=== PATIENT | female | born 1985 | race Caucasian/White ===

== ENCOUNTER 2016-06-08 09:48 | Outpatient (CLI) | payer OTHER ==
[~2016-06-08] VITALS: Ht 149.9 cm; Wt 85.5 kg
[2016-06-08 10:01] VITALS: BP 119/80; PULSE 83; RESP 18; Ht 149.9 cm; Wt 85.5 kg
[2016-06-08] MEDS ORDERED: PRENAT PO (10:05)
--- NOTE | 2016-06-08 11:21 | RADRPT ---
PROCEDURE: OB ultrasound for biophysical profile CLINICAL INDICATION: Post dates TECHNIQUE: Multiple sonographic images of the pelvis were obtained. Transabdominal view of the gr avid uterus are available for review. The images were reviewed on a PACS workstation. COMPARISON: OB ultrasound 01/20/2016 FINDINGS: breathing movement = 2/2 tone = 2/2 motion = 2/2 KELSEY = 2/2 KELSEY = 16.7 cm Single live intrauterine with cardiac activity. heart rate equals 131 beats p er minute. Presentation is cephalic. The placenta is posterior. IMPRESSION: 1. Single viable intrauterine gestation. 2. Biophysical profile = 8/8. 3. KELSEY = 16.7 cm. RPTAT: KK .James Curry MD, MD Date Time Electronically viewed and signed by .James Curry MD, MD on 06/08/2016 11:21 .B/
--- NOTE | 2016-06-08 11:24 | RADRPT ---
PROCEDURE: US OB CLINICAL INDICATION: post dates TECHNIQUE: Multiple sonographic images of the pelvis were obtained. The images were reviewed on a PACS workstation. COMPARISON: None FINDINGS: The cervix is not well visualized. There is a single viable intrauterine gestation. Cardiac activity is present with 137 beats per minute. There is a vertex presentation. The placenta is posterior. There is no evidence for an abruption or placenta previa. There is a subjectively normal amount of amniotic fluid. Measurements were made in order to determine age. The results are as follows (cm): BPD =9.48 HC =34.61 AC =34.80 FL =7.56 Estimated gestational age by ultrasound of approximately 39 weeks, 1 day. The estimated date of delivery by ultrasound is 06/14/2016. Reported gestational age by LMP of approximately 40 weeks, 1 day. The reported date of delivery by LMP was 06/07/2016. EFW = 3624 grams (48th percentile) IMPRESSION: Single viable intrauterine gestation of approximately 39 weeks, 1 day . The estimated date of delivery is 06/14/2016 . Dating by ultrasound is within 1 week of dating by LMP. Cephalic presentation. RPTAT: EE Physician Kitty Date Time Electronically viewed and signed by Physician Kitty on 06/08/2016 11:23 /
--- NOTE | 2016-06-08 12:12 | TRIAGE ---
OB Triage Datetime Report Generated by CPN: 06/08/2016 12:12 Datetime: 06/08/2016 11:00 Labor Evaluation Frequency: 2-6 Monitor Mode: External Duration (sec)2399: 60-150 Quality: Mild Pattern: Normal: <= 5 Contractions in 10 Minutes Resting Tone [place]: Relaxed Heart Rate FHR Baseline Rate: 135 Monitor Mode: External US FHR Baseline Changes: No Baseline Change Variability: Moderate 6-25 bpm Accelerations: 15X15 Decelerations: None Category: Category I Datetime: 06/08/2016 09:58 Stage of : OB Triage Assessment Type: Triage EGA: 40.2 Maternal Assessment Level of Consciousness: Fully Conscious DTR's/Clonus: DTRs 2+; No Clonus Headache: Denies Blurred Vision: No Respiratory Effort: Unlabored; Regular Rhythm; Equal Expansion Breath Sounds, Left: Clear and Equal Breath Sounds, Right: Clear and Equal Nausea/Vomiting: Denies RUQ Epigastric Pain: Denies Facial Edema: None Temperature Route: Axillary Fall Risk Assessment History of Falling: (0) No Secondary Diagnosis: (0) No Ambulatory Aid: (0) Bedrest/Nurse Assist IV Therapy: (0) No Gait: (0) Normal/Bedrest/Immobile Mental Status: (0) Oriented to Own Ability Fall Score: 0 Fall Risk Score Definition: No Risk: No action required Labor Evaluation Frequency: 0 Monitor Mode: External Resting Tone [place]: Relaxed Heart Rate FHR Baseline Rate: 135 Monitor Mode: External US Variability: Moderate 6-25 bpm Decelerations: None Category: Category II Pain Assessment Pain Scale: 0 Pain Presence: None/Denies Pain Type: N/A Pain Goal: 3 Pain Relief Measures: Comfort Measures Datetime: 06/08/2016 09:57 Time of Arrival: 06/08/2016 09:50 Arrived By: Ambulatory Arrived From: Office Chief Complaint: SENT FROM OFFICE FOR BPP/EFW POST DATES Movement: Present Contractions: Denies/Absent Rupture of Membranes: Denies Vaginal Bleeding: None Vaginal Discharge: Denies Recent Sexual Intercouse: Denies Abdominal Trauma: Not Applicable Patient Complaints: None Time Provider Notified: 06/08/2016 11:40 Provider Notified: DR ESPINAL Initial Plan: MONITOR, EFW, BPP
--- NOTE | 2016-06-08 12:16 | PN ---
Date/Time of Note Date/Time of Note DATE: 06/08/16 TIME: 12:13 OB Subjective Subjective Subjective Patient is 2 para 1 at 40 weeks and 2 days of gestation with estimated date of delivery on June 06, 2016 She presents today for NST and biophysical profile Patient is scheduled for induction tomorrow for postdates OB Objective Objective Objective NST is reactive Biophysical profile 8 out of 8 KELSEY 16.7 Estimated weight 3624 g HEENT: WNL Heart: Rhythm Normal Lungs: Clear Abdomen: WNL Extremities: Normal Heart Rate: 140's Accelerations: Accelerations Present Decelerations: No Decelerations Varibility: Moderate Contractions on Admission: None OB Assessment/Plan Other Assessment: 2 para 1 at 40+2 weeks of gestation NST is reactive Biophysical profile 8 out of 8 Other plan: Patient can be discharged home today She should return tomorrow at 7 AM for induction for postdates REAGAN HARVEY MD Jun 08, 2016 12:16
== END 2016-06-08 12:00 | disposition home or self-care (01) ==
LOC: OBT 09:48 → L-D 09:49 → OBT 12:00
PROVIDERS: ATTEND Obstetrics & Gynecology
DX: O48.0 Post-term pregnancy (principal); Z3A.40 40 weeks gestation of pregnancy
CPT/HCPCS: 76815; 76818; Z7500; G0463

== ENCOUNTER 2016-06-09 07:00 | Inpatient (IN) | payer OTHER ==
[~2016-06-09] VITALS: Ht 149.9 cm; Wt 85.7 kg
[~2016-06-09 07:00] MED LIST: PRENAT PO
[2016-06-09 08:05] VITALS: Ht 149.9 cm; Wt 85.7 kg
[2016-06-09 08:07] VITALS: BP 123/79; PULSE 89; RESP 18
[2016-06-09] MEDS ORDERED: OXYTOCIN 30 UNITS/LR 500 ML IV PRN (08:30)
[2016-06-09] MEDS ORDERED: METHYLERGONOVINE 0.2 MG INJ IM PRN (08:30)
[2016-06-09] MEDS ORDERED: OXYTOCIN 30 UNITS/LR 500 ML IV SCH ×3 (08:30→20:00)
[2016-06-09] MEDS ORDERED: BUTORPHANOL 2 MG INJ IV PRN (08:30)
[2016-06-09] MEDS ORDERED: IBUPROFEN 600 MG TAB PO PRN (08:30)
[2016-06-09] MEDS ORDERED: CARBOPROST 250 MCG INJ IM PRN (08:30)
[2016-06-09] MEDS ORDERED: LIDOCAINE 1% (MPF) 30 ML INJ INJ PRN (08:30)
[2016-06-09] MEDS ORDERED: MISOPROSTOL 200 MCG TAB PR PRN (08:30)
[2016-06-09] MEDS: LACTATED RINGER'S 1,000 ML IV SCH ×2 (09:28→16:17)
[2016-06-09 09:52] LABS: ADD SCAN DIFF NO
[2016-06-09 10:14] LABS: INR 0.91; PROTIME 12.2 Sec (12.2-14.2)
[2016-06-09 10:15] LABS: PARTIAL THROMBOPLASTIN TIME 27.4 Sec (25.0-35.0)
[2016-06-09 10:39] LABS: BASOPHILS % 0.6 % (0.0-2.0); EOSINOPHILS # 0.1 10^3/ul (0.0-0.5); EOSINOPHILS % 1.2 % (0.0-7.0); HEMATOCRIT 40.9 % (37.0-47.0); HEMOGLOBIN 13.6 g/dl (12.0-16.0); LYMPHOCYTES # 1.6 10^3/ul (0.8-2.9); LYMPHOCYTES % 22.7 % (15.0-51.0); MEAN CORPUSCULAR HEMOGLOBIN 31.9 pg (29.0-33.0); MEAN CORPUSCULAR HGB CONC 33.3 g/dl (32.0-37.0); MEAN CORPUSCULAR VOLUME 95.8 fl (82.0-101.0); MEAN PLATELET VOLUME 11.1 fl (7.4-10.4); MONOCYTE # 0.7 10^3/ul (0.3-0.9); MONOCYTES % 10.1 % (0.0-11.0); NEUTROPHIL # 4.5 10^3/ul (1.6-7.5); NEUTROPHILS % 64.7 % (39.0-77.0); PLATELET COUNT 209 10^3/UL (140-415); RED BLOOD COUNT 4.27 10^6/ul (4.20-5.40); RED CELL DISTRIBUTION WIDTH 14.2 % (11.5-14.5); WHITE BLOOD COUNT 6.9 10^3/ul (4.8-10.8)
[2016-06-09] MEDS ORDERED: LACTATED RINGER'S 1,000 ML IV PRN (12:00)
[2016-06-09] MEDS ORDERED: ONDANSETRON 4 MG INJ IV STA (21:50)
[2016-06-09] MEDS ORDERED: CITRIC ACID/SODIUM CITRATE 15 ML CUP PO ONE (22:00)
[2016-06-09] MEDS ORDERED: DIPHENHYDRAMINE 50 MG INJ IV PRN (22:30)
[2016-06-09] MEDS ORDERED: PROCHLORPERAZINE 10 MG INJ IV PRN (22:30)
[2016-06-09] MEDS ORDERED: NALOXONE (0.4 MG/ML) INJ IV PRN (22:30)
[2016-06-09] MEDS ORDERED: morphine 2 MG INJ IV PRN ×2 (22:30)
[2016-06-09] MEDS ORDERED: KETOROLAC 30 MG INJ IV PRN (22:30)
[2016-06-09] MEDS ORDERED: ONDANSETRON 4 MG INJ IV PRN (22:30)
[2016-06-09] MEDS ORDERED: FENTAnyl 2MCG/ML-ROPIV 0.2% 100 ML BAG EPI SCH (22:30)
[2016-06-09] MEDS ORDERED: FENTAnyl 2MCG/ML-ROPIV 0.2% 100 ML ONE (22:33)
--- NOTE | 2016-06-09 22:39 | HP ---
Date/Time of Note Date/Time of Note DATE: 06/09/16 TIME: 22:36 OB - History Hx of Present Chief Complaint: contractions Estimated Due Date: Jun 06, 2016 : 2 Para: 1 Spontaneous : 0 Therapeutic : 0 Care: Good Care Ultrasounds: Normal mid trimester US Obstetrical Complications: None Medical Complications: None Past Family/Social History * Past Medical, Surgical, Family and Obstetric Histories reviewed from chart. GBS Status: Negative OB Admission Exam Vital Signs Vital Signs Vital Signs Date Time Temp Pulse Resp B/P Pulse Ox O2 Delivery O2 Flow Rate FiO2 06/09/16 08:07 99.0 89 18 123/79 Room Air Physical Exam HEENT: WNL Heart: Rhythm Normal Lungs: Clear Abdomen: WNL Extremities: Normal Cervical Dilatation: 2cm Effacement: 50% Station: -1 Membranes: Intact Heart Rate: 140's Accelerations: Accelerations Present Decelerations: No Decelerations Varibility: Moderate Last 72 hours Lab Results CBC & BMP 06/09/16 08:25 OB Assessment/Plan Reason for admission: active labor Plan: Expectant Management YASMIN ESPINAL MD Jun 09, 2016 22:39
[2016-06-10] MEDS: LACTATED RINGER'S 1,000 ML IV SCH ×2 (02:03→07:50)
[2016-06-10] MEDS ORDERED: morphine 10 MG INJ ONE (11:15)
--- NOTE | 2016-06-10 11:29 | LDN ---
Date/Time of Note Date/Time of Note DATE: 06/10/16 TIME: 11:26 Delivery Summary Weeks of Gestation 40 weeks and 4 days Placenta Delivered: Spontaneously Meconium: Light Episiotomy: No Perineal laceration: 1 Laceration repair: Second degree laceration repaired with 3-0 Vicryl and 3-0 chromic. Anesthesia type: Epidural Estimated blood loss: 300 Sponge & Needle done & correct: Yes All needle counts correct: Yes Any foreign bodies felt in the: No Problems: Delivery Information Sex Infant Sex: female Apgars 1 Minute: 8 5 Minute: 8 10 Minute: 9 Suctioning Nose & mouth suctioned at yair: Yes Delee suction performed: No Umbilical Cord Umbilical cord with: 3 Vessels Cord presentations: no nuchal cord Cord Blood was obtained: Yes Mother & Baby Disposition Disposition Mom & Baby to Maternity; Good: Yes YASMIN ESPINAL MD Jun 10, 2016 11:29
[2016-06-10] MEDS ORDERED: morphine 10 MG INJ IV ONE (11:30)
[2016-06-10 13:00] VITALS: BP 113/59; PULSE 79; RESP 18
[2016-06-10] MEDS ORDERED: WITCH HAZEL/GLYCERIN PAD PR PRN (13:30)
[2016-06-10] MEDS ORDERED: BENZOCAINE 20% 56 ML SPRAY TOP PRN (13:30)
[2016-06-10] MEDS ORDERED: OXYTOCIN 30 UNITS/LR 500 ML IV PRN (13:30)
[2016-06-10] MEDS ORDERED: ACETAMINOPHEN/CODEINE #3 TAB PO PRN (13:30)
[2016-06-10] MEDS ORDERED: METHYLERGONOVINE 0.2 MG INJ IM PRN (13:30)
[2016-06-10] MEDS ORDERED: DIBUCAINE 1% 30 GM OINT PR PRN (13:30)
[2016-06-10] MEDS ORDERED: ACETAMINOPHEN 325 MG TAB PO PRN (13:30)
[2016-06-10] MEDS ORDERED: MISOPROSTOL 200 MCG TAB PR PRN (13:30)
[2016-06-10] MEDS ORDERED: CARBOPROST 250 MCG INJ IM PRN (13:30)
[2016-06-10] MEDS: LANOLIN 7 GM TUBE TOP PRN (14:17)
[2016-06-10] MEDS: LACTATED RINGER'S 1,000 ML IV* SCH ×2 (14:18→21:17)
[2016-06-10 16:00] VITALS: BP 117/64; PULSE 81; RESP 18
[2016-06-10] MEDS: IBUPROFEN 600 MG TAB PO SCH ×2 (17:21→23:36)
[2016-06-10 19:50] VITALS: BP 122/63; PULSE 83; RESP 19
[2016-06-10] MEDS: SENNA/DOCUSATE NA (8.6MG/50MG) TAB PO SCH (20:58)
[2016-06-11 04:10] VITALS: BP 118/72; PULSE 72; RESP 20
[2016-06-11] MEDS: LACTATED RINGER'S 1,000 ML IV* SCH ×2 (05:17→21:17)
[2016-06-11] MEDS: IBUPROFEN 600 MG TAB PO SCH ×4 (05:34→23:48)
[2016-06-11 08:03] LABS: ADD SCAN DIFF NO
[2016-06-11 08:10] LABS: BASOPHILS % 0.4 % (0.0-2.0); EOSINOPHILS # 0.1 10^3/ul (0.0-0.5); EOSINOPHILS % 0.5 % (0.0-7.0); HEMATOCRIT 34.3 % (37.0-47.0); HEMOGLOBIN 11.5 g/dl (12.0-16.0); LYMPHOCYTES # 1.5 10^3/ul (0.8-2.9); LYMPHOCYTES % 14.6 % (15.0-51.0); MEAN CORPUSCULAR HGB CONC 33.5 g/dl (32.0-37.0); MEAN CORPUSCULAR VOLUME 95.5 fl (82.0-101.0); MEAN PLATELET VOLUME 10.8 fl (7.4-10.4); MONOCYTE # 0.9 10^3/ul (0.3-0.9); MONOCYTES % 9.1 % (0.0-11.0); NEUTROPHIL # 7.7 10^3/ul (1.6-7.5); NEUTROPHILS % 74.9 % (39.0-77.0); PLATELET COUNT 191 10^3/UL (140-415); RED BLOOD COUNT 3.59 10^6/ul (4.20-5.40); RED CELL DISTRIBUTION WIDTH 13.8 % (11.5-14.5); WHITE BLOOD COUNT 10.3 10^3/ul (4.8-10.8)
[2016-06-11 08:25] VITALS: BP 99/55; PULSE 91; RESP 18
[2016-06-11] MEDS: SENNA/DOCUSATE NA (8.6MG/50MG) TAB PO SCH ×2 (09:27→21:03)
[2016-06-11 16:15] VITALS: BP 105/69; PULSE 75; RESP 18
--- NOTE | 2016-06-11 18:22 | DS ---
Date/Time of Note Date/Time of Note DATE: 06/11/16 TIME: 18:21 Obstetrical Discharge Record Final Diagnosis Final Diagnosis: Term delivered Vaginal Delivery Obstetrical Delivery: Spontaneous, Laceration, Repaired Complications Augmentation: Yes Condition on Discharge Physical Assessment Voiding: Yes Bowel Movement: Yes Breast: Soft, non-tender Fundus: Firm Calf Tenderness: No Patient Condition: Stable YASMIN ESPINAL MD Jun 11, 2016 18:22
[2016-06-11 19:35] VITALS: PULSE 83; RESP 18
[2016-06-11] MEDS: LANOLIN 7 GM TUBE TOP PRN (21:08)
[2016-06-12 04:25] VITALS: BP 100/68; PULSE 62; RESP 18
[2016-06-12] MEDS: LACTATED RINGER'S 1,000 ML IV* SCH ×2 (05:17→13:17)
[2016-06-12] MEDS: IBUPROFEN 600 MG TAB PO SCH ×2 (06:06→13:17)
[2016-06-12 09:00] VITALS: BP 117/75; PULSE 73; RESP 17
[2016-06-12] MEDS ORDERED: DIPHTH/TET/ACEL PERTUSS (ADULT) 0.5 ML VIAL IM* ONE (09:00)
[2016-06-12] MEDS: SENNA/DOCUSATE NA (8.6MG/50MG) TAB PO SCH (09:29)
== END 2016-06-12 14:28 | disposition home or self-care (01) | DRG 775 ==
LOC: L-D 07:25 → PP1 06-10 13:01
PROVIDERS: ADMIT Obstetrics & Gynecology; ATTEND Obstetrics & Gynecology
PROC: 10E0XZZ Delivery of Products of Conception, External Approach (ICD-10-PCS; principal; 2016-06-10)
PROC: 0KQM0ZZ Repair Perineum Muscle, Open Approach (ICD-10-PCS; 2016-06-10)
DX: O48.0 Post-term pregnancy (principal); Z68.38 Body mass index [BMI] 38.0-38.9, adult; O99.214 Obesity complicating childbirth; Z3A.40 40 weeks gestation of pregnancy; O70.1 Second degree perineal laceration during delivery; Z37.0 Single live birth
CPT/HCPCS: 62319; 85025; 85610; 85730; 86592; 86900; 86901; 90715; J2270; J2405; J2590; J3010; J7120